=== PATIENT | female | born 1940 | race Caucasian/White ===

== ENCOUNTER 2017-01-29 10:19 | Emergency (ER) | payer MEDICARE, BC ==
[~2017-01-29] VITALS: Ht 170.2 cm; Wt 83.0 kg
--- NOTE | 2017-01-29 10:34 | Emergency Room Report ---
History of Present Illness General Chief Complaint: Upper Extremity Injury Source: Patient Present Illness HPI Patient is a 76-year-old female presented after increased swelling and redness to her right hand and index finger. Patient stated that she had poked herself with a thorn yesterday. She began having increased pain at the site as well as swelling and redness. Patient states she is right-hand dominant is not currently employed. She reports having removed the thorn. She denies any numbness or weakness distally. Allergies: Coded Allergies: No Known Allergies (Unverified , 01/29/17) Patient History Past Medical History: see triage record Reviewed Nursing Documentation: PMH: Agreed, PSxH: Agreed Nursing Documentation-PMH Past Medical History: No History, Except For Hx Cardiac Problems: No - HYPOTHYROIDISM Review of Systems All Other Systems: negative except mentioned in HPI Physical Exam Vital Signs Date Time Temp Pulse Resp B/P Pulse Ox O2 Delivery O2 Flow Rate FiO2 01/29/17 10:22 98.2 81 20 122/78 97 Room Air General Appearance: well appearing, no apparent distress, alert, GCS 15, non- toxic Head: normocephalic, atraumatic ENT: hearing grossly normal, normal voice Neck: full range of motion, supple Respiratory: no respiratory distress, speaking full sentences Musculoskeletal: no calf tenderness Neurologic: normal inspection, alert, oriented x3, normal gait Psychiatric: mood/affect normal Skin: other - small area of possible foreign body to index finger with erythema Medical Decision Making Diagnostic Impression: Primary Impression: Cellulitis of hand ER Course Patient presented for upper extremity pain. Differential diagnosis included but was not limited to fracture, contusion, foreign body, vascular insufficiency, cellulitis. Patient was advised risk benefits alternatives of foreign body removal. The patient indicated understanding and wish to proceed. The patient was noted to have what appears to be some cellulitic component to her hand. Patient was given oral antibiotics.The patient was noted to have noticed a foreign body after attempted removal with needle after sterile prep and drape. The patient was noted to have no purulent discharge from the area. Patient was anesthetized with approximately 1 mL of lidocaine 1% for procedure. A sterile dressing was applied by nurseThe patient was advised on wound rechecked in one to 2 days and to return if she had any worsening of condition or other concerns. Last Vital Signs Date Time Temp Pulse Resp B/P Pulse Ox O2 Delivery O2 Flow Rate FiO2 01/29/17 10:22 98.2 81 20 122/78 97 Room Air Status: improved Disposition: HOME, SELF-CARE Condition: Stable Scripts Ibuprofen (Ibuprofen) 400 Mg Tablet 400 MG PO Q8HR, #30 TAB Prov: Mark Carlson 01/29/17 Amoxicillin/Potassium Clav 875-125* (AUGMENTIN 875-125 TABLET*) 1 Each Tablet 1 TAB ORAL TWICE A DAY, #14 TAB Prov: Mark Carlson 01/29/17 Mark Carlson Jan 29, 2017 10:34
[2017-01-29] MEDS ORDERED: AUGMENTIN 875-1 EAC1 ORAL (10:44)
[2017-01-29] MEDS ORDERED: IBUPROFEN400 M1 PO (10:44)
[2017-01-29] MEDS ORDERED: Lidocaine 1% MPF 10mg/ml 5ml INJ ONE (10:45)
[2017-01-29] MEDS ORDERED: Augmentin 875mg Tab ORAL ONE (10:45)
[2017-01-29 10:56] VITALS: BP 105/75
== END 2017-01-29 10:59 | disposition home or self-care (01) ==
LOC: EMR 10:52
DX: L03.113 Cellulitis of right upper limb (principal)
CPT/HCPCS: 99284